=== PATIENT | male | born 1940 | race Hispanic/Latino ===

== ENCOUNTER 2018-09-25 01:53 | Inpatient (IN) | payer MEDICARE, OTHER ==
[2018-09-25] MEDS ORDERED: Nitroglycerin 2% Ointment Foilpak UD TOP STA (02:26)
--- NOTE | 2018-09-25 02:29 | ED PDOC ---
Arrival/HPI - General Chief Complaint: Dizziness/Lightheaded Time Seen by Provider: 09/25/18 02:16 Historian: Patient - History of Present Illness Narrative History of Present Illness (Text): 09/25/18 02:26 A 78 year old male, whose past medical history includes hypertension, presents to the emergency department with a complaint of occasional, intermittent left side chest discomfort and occasional dizziness. Patient states that he has not seen a doctor in many years. Patient denies fevers, chills, headache, shortness of breath, dyspnea on exertion, cough, abdominal pain, nausea, vomiting, diarrhea, back pain, neck pain, urinary/bowel changes, or any other complaint. Time/Duration: Other (Today) Symptom Onset: Sudden Symptom Course: Unchanged Activities at Onset: Rest, Light Context: Home Past Medical History - Provider Review Nursing Documentation Reviewed: Yes - Infectious Disease Hx of Infectious Diseases: None - Pulmonary Hx Respiratory Disorders: No - Neurological Hx Neurological Disorder: No - Renal Hx Renal Disorder: No - Endocrine/Metabolic Hx Endocrine Disorders: No - Hematological/Oncological Hx Blood Disorders: No - Integumentary Hx Dermatological Disorder: No - Musculoskeletal/Rheumatological Hx Musculoskeletal Disorders: No - Gastrointestinal Hx Gastrointestinal Disorders: No - Genitourinary/Gynecological Hx Genitourinary Disorders: No - Psychiatric Hx Substance Use: No - Surgical History Hx Coronary Artery Bypass Graft: Yes (x2) - Anesthesia Hx Anesthesia: No Family/Social History - Physician Review Nursing Documentation Reviewed: Yes Family/Social History: No Known Family HX Smoking Status: Heavy Smoker > 10 Cigarettes Daily Hx Alcohol Use: Yes Frequency of alcohol use: Few days per week Hx Substance Use: No Allergies/Home Meds Allergies/Adverse Reactions: Allergies No Known Allergies Allergy (Verified 09/25/18 02:10) Home Medications: Home Meds Medication Instructions Recorded Confirmed No Known Home Med 09/25/18 09/25/18 Review of Systems - Physician Review All systems were reviewed & negative as marked: Yes - Review of Systems Constitutional: absent: Fevers Respiratory: absent: SOB, Cough Cardiovascular: Chest Pain. absent: LEROY Gastrointestinal: absent: Abdominal Pain, Stool Changes, Diarrhea, Nausea, Vomiting Genitourinary Male: absent: Urinary Output Changes Musculoskeletal: absent: Back Pain, Neck Pain Neurological: Dizziness. absent: Headache Physical Exam Appearance: Positive for: Well-Appearing, Non-Toxic, Comfortable Pain Distress: None Mental Status: Positive for: Alert and Oriented X 3 - Systems Exam Head: Present: Atraumatic, Normocephalic Pupils: Present: PERRL Extroacular Muscles: Present: EOMI Conjunctiva: Present: Normal Mouth: Present: Moist Mucous Membranes Neck: Present: Normal Range of Motion Respiratory/Chest: Present: Clear to Auscultation, Good Air Exchange. No: Respiratory Distress, Accessory Muscle Use Cardiovascular: Present: Regular Rate and Rhythm, Normal S1, S2. No: Murmurs Abdomen: No: Tenderness, Distention, Peritoneal Signs Back: Present: Normal Inspection Upper Extremity: Present: Normal Inspection. No: Cyanosis, Edema Lower Extremity: Present: Normal Inspection. No: Edema Neurological: Present: GCS=15, CN II-XII Intact, Speech Normal Skin: Present: Warm, Dry, Normal Color. No: Rashes Psychiatric: Present: Alert, Oriented x 3, Normal Insight, Normal Concentration Medical Decision Making ED Course and Treatment: 09/25/18 02:28 Impression: A 78 year old male presents to the emergency department with a complaint of left sided chest pain and dizziness. Plan: -- EKG -- Chest X-ray -- Labs -- Aspirin, Lopressor, and Nitro- Bid 2% Oint -- Reassess and disposition Prior Visits: Notes and results from previous visits were reviewed. Progress Notes: 09/25/18 02:29: EKG read and interpreted by me shows NSR at 83 BM. LAD. Incomplete RBBB. Non specific ST- T changes. 09/25/18 04:36: Case discussed in detail with Dr. Kaur. 09/25/18 04:39: Chest X-ray read and interpreted by me shows no acute process. CT scan of the head. CLINICAL HISTORY: Confused. TECHNIQUE: Multiple axial CT images were obtained through the brain without IV contrast material. COMMENTS: Moderate chronic mucosal inflammatory changes of the right maxillary sinus. Air-fluid level in the right maxillary sinus suggestive of superimposed acute sinusitis. Moderate chronic mucosal inflammatory changes of the frontal sinuses. Mild chronic mucosal inflammatory changes of the ethmoid air cells. There is normal configuration of sella turcica. There are no intra or extra- axial collections. There is no mass effect or midline shift. There is no evidence of hematoma formation. No hydrocephalus is present. The ventricles are symmetrical. No abnormal calcifications are present. There is diffuse age-appropriate cerebellar and cerebral atrophy with proportionally dilated ventricles and cortical sulci. There are bilateral periventricular and subcortical white matter hypolucencies compatible with mild chronic microvascular disease. Otherwise, no significant focal abnormalities are seen either in the posterior fossa or supratentorial compartment. IMPRESSION: 1. Age-appropriate cerebellar and cerebral atrophy. 2. Mild chronic microvascular disease. 3. No evidence of acute intracranial pathology. 4. Sinusitis. Acute on top of chronic. Electronically signed on September 25, 2018 5:40:17 AM EDT by: Faizan Angeles M.D., Certified by ABR, MSK, Neuroradiology - Lab Interpretations I have reviewed the lab results: Yes - RAD Interpretation Radiology Orders: 09/25/18 02:20 CHEST PORTABLE [RAD] Stat - EKG Interpretation Interpreted by ED Physician: Yes Type: 12 lead EKG - Scribe Statement The provider has reviewed the documentation as recorded by the Scribe Sharon Watkins Provider Scribe Attestation: All medical record entries made by the Scribe were at my direction and personally dictated by me. I have reviewed the chart and agree that the record accurately reflects my personal performance of the history, physical exam, medical decision making, and the department course for this patient. I have also personally directed, reviewed, and agree with the discharge instructions and disposition. Disposition/Present on Arrival - Present on Arrival Any Indicators Present on Arrival: No History of DVT/PE: No History of Uncontrolled Diabetes: No Urinary Catheter: No History of Decub. Ulcer: No History Surgical Site Infection Following: None - Disposition Have Diagnosis and Disposition been Completed?: Yes Diagnosis: Hypertensive urgency, Chest pain Disposition: HOSPITALIZED Disposition Time: 04:51 Patient Problems: Current Active Problems Problem Status Onset Chest pain Acute Hypertensive urgency Acute Condition: STABLE
[2018-09-25 02:41] LABS: ALB/GLOB RATIO 1.6 (1.1-1.8); ALBUMIN 4.5 g/dL (3.0-4.8); ALT/SGPT 26 U/L (7-56); AST/SGOT 41 U/L (17-59); BLOOD UREA NITROGEN 25 mg/dL (7-21); CALCIUM 9.7 mg/dL (8.4-10.5); GFR NON-AFRICAN AMERICAN 54
[2018-09-25 02:46] LABS: HEMOGLOBIN 14.8 g/dL (14.0-18.0); MEAN CELL VOLUME 94.1 fl (80.0-105.0); MEAN CORPUSCULAR HEMOGLOBIN 31.2 pg (25.0-35.0); MEAN CORPUSCULAR HGB CONC 33.2 g/dl (31.0-37.0); MEAN PLATELET VOLUME 10.8 fl (7.0-11.0); RBC 4.74 10^6/uL (3.5-6.1); RED CELL DISTRIBUTION WIDTH 14.3 % (11.5-14.5); WHITE BLOOD COUNT 7.8 10^3/uL (4.5-11.0)
[2018-09-25 02:51] LABS: INR 1.03; PARTIAL THROMBOPLASTIN TIME 33.6 Seconds (26.9-38.3); PROTHROMBIN TIME 11.4 SECONDS (9.4-12.5)
[2018-09-25 02:53] LABS: TROPONIN I < 0.01 ng/mL
[2018-09-25 03:24] LABS: CK MB% 1.7 % (2.5-3.0); CK-MB 7.5 ng/mL (0.0-3.6)
[2018-09-25 10:56] LABS: TROPONIN I < 0.01 ng/mL
[2018-09-25 11:04] LABS: CK MB% 2.1 % (2.5-3.0); CK-MB 5.8 ng/mL (0.0-3.6)
[2018-09-25] MEDS ORDERED: Pneumococcal 23-Valent Vaccine IM ONE (11:11)
--- NOTE | 2018-09-25 12:57 | RAD ---
Date of service: 09/25/2018 HISTORY: chest pain COMPARISON: No prior. TECHNIQUE: 1 view obtained. FINDINGS: LUNGS: No active pulmonary disease. PLEURA: No significant pleural effusion identified, no pneumothorax apparent. CARDIOVASCULAR: Prior sternotomy with sternal wires and surgical clips in place. Aortic atherosclerotic calcifications. Cardiomediastinal silhouette enlarged. OSSEOUS STRUCTURES: Spinal degenerative changes. VISUALIZED UPPER ABDOMEN: Normal. OTHER FINDINGS: None. IMPRESSION: No active disease.
--- NOTE | 2018-09-25 13:00 | CT ---
Date of service: 09/25/2018 PROCEDURE: CT HEAD WITHOUT CONTRAST. HISTORY: Confused COMPARISON: None available. TECHNIQUE: Axial computed tomography images were obtained through the head/brain without intravenous contrast. Radiation dose: Total exam DLP = 917.9 mGy-cm. This CT exam was performed using one or more of the following dose reduction techniques: Automated exposure control, adjustment of the mA and/or kV according to patient size, and/or use of iterative reconstruction technique. FINDINGS: HEMORRHAGE: No intracranial hemorrhage. BRAIN: No mass effect or edema. Mild atrophy. Chronic microvascular ischemic changes. Bilateral basal ganglia lacunar infarctions. VENTRICLES: Unremarkable. No hydrocephalus. CALVARIUM: Unremarkable. PARANASAL SINUSES: Moderate right maxillary sinus mucosal thickening. MASTOID AIR CELLS: Unremarkable as visualized. No inflammatory changes. OTHER FINDINGS: None. IMPRESSION: No acute intracranial pathology. Age-related changes. Right maxillary sinus disease
--- NOTE | 2018-09-26 11:45 | CP.PCM.PN ---
Subjective - Date & Time of Evaluation Date of Evaluation: 09/26/18 Time of Evaluation: 11:45 - Subjective Subjective: Paged by nurse, patient had 30 second pause on the secured entrance monitor. Upon evaluating patient, patient is asymptomatic, awake and alert, denies cp, sob, or dizziness. Patient states he didn't have bowel movement for 1 week. SBP in the 110s, and patient is saturating well on room air, current HR in the 80s. There's 30 second pause and another ~20 second pause on the strip. Left message to Dr. Kaur's phone, awaiting response. Plan: will obtain EKG, add tsh, bmp, mag, will hold clonidine Told nurse to give prune juice, will also give miralax Will reevaluate Nettie Dunn, DO PGY3 Objective - Vital Signs/Intake and Output Vital Signs (last 24 hours): Temp Pulse Resp BP Pulse Ox 98.4 F 76 18 111/77 113 H 09/26/18 11:31 09/26/18 11:31 09/26/18 11:31 09/26/18 11:31 09/26/18 06:00 Intake and Output: 09/26/18 09/26/18 06:59 18:59 Intake Total 480 Balance 480 - Medications Medications: Current Medications Clonidine HCl (Catapres) 0.1 mg PO Q4H PRN PRN Reason: Systolic Blood Pressure Last Admin: 09/25/18 09:20 Dose: 0.1 mg Hydralazine HCl (Apresoline) 10 mg IVP STAT JOSE Last Admin: 09/25/18 04:09 Dose: 10 mg Lorazepam (Ativan) 1 mg PO QID PRN; Protocol PRN Reason: Anxiety Nicotine (Nicoderm Cq) 1 patch TD DAILY JSOE Last Admin: 09/26/18 09:14 Dose: 1 patch - Labs Labs: 09/25/18 02:20 09/25/18 02:20 PT 11.4 SECONDS (9.4-12.5) 09/25/18 02:20 INR 1.03 09/25/18 02:20 APTT 33.6 Seconds (26.9-38.3) 09/25/18 02:20
[2018-09-26] MEDS ORDERED: POLYETHYLENE GLYCOL 3350 17 GM/Dose PACKET PO ONE (12:00)
[2018-09-26 12:46] LABS: TROPONIN I < 0.01 ng/mL
[2018-09-26 12:48] LABS: BLOOD UREA NITROGEN 19 mg/dL (7-21); CALCIUM 9.5 mg/dL (8.4-10.5); GFR NON-AFRICAN AMERICAN > 60
[2018-09-26] MEDS ORDERED: Nitroglycerin 2% Ointment Foilpak UD TOP PRN (13:17)
--- NOTE | 2018-09-27 11:28 | CARD ---
APPROVED REPORT Date of service: 09/26/2018 EKG Measurement Heart [id number] <Conclusion> Sinus rhythm with sinus arrhythmia with 1st degree AV block Otherwise normal ECG
--- NOTE | 2018-09-27 13:07 | CON ---
DATE: 09/27/2018 REQUESTING PHYSICIAN: Dr. Kaur. REASON FOR CONSULTATION: Chest pain. HISTORY: This is a 78-year-old man with known coronary disease, status post prior bypass surgery, who has had no followup with any physician for over 10 years. He presents to emergency room complaining of left-sided chest discomfort and occasional lightheadedness. He describes his discomfort as an uneasy sensation in his chest. His symptoms tend to wax and wane. He cannot identify any precipitating or relieving factors. Initial electrocardiogram and blood work were unremarkable. He also states he has dizziness, which he attributes to elevation of his blood pressure, although he does not take medication or check his blood pressure regularly. He does have coronary artery disease and reportedly has had myocardial infarctions in the past. He is states he underwent coronary bypass surgery at [facility] 15 or 20 years ago. He has continued to smoke since that time. He has not had followup in over a decade. His cholesterol status is unknown. He has no known history of diabetes. There is no family history of premature heart disease. PAST MEDICAL HISTORY: Notable for the problems mentioned above. He has had a right inguinal herniorrhaphy. MEDICATIONS AT HOME: None. ALLERGIES: NONE. SOCIAL HISTORY: He is a smoker of approximately a pack per day. He previously smoked up to 4 packs a day. He does drink alcohol occasionally. He is a retired truck mechanic. He has been and 3 times. He states he has 8 children, but has no contact with any family members. FAMILY HISTORY: Both parents are from age-related illness. There is no known history of premature heart disease. REVIEW OF SYSTEMS: A 12-point review of systems is notable mainly for problems mentioned above. He does have an inguinal rash as well as questionable bulge in his left lower quadrant at times. He also has leg pain upon walking. PHYSICAL EXAMINATION: GENERAL: He is an elderly man who appears comfortable at rest. VITAL SIGNS: His blood pressure is 146/80 with a pulse of 76 and sinus, respirations are 16. He is afebrile. HEENT: Normocephalic, atraumatic. NECK: Soft bruit is noted on the right. No JVD is noted. CHEST: Bilateral scattered rhonchi heard. HEART: PMI displaced laterally. A soft systolic murmur is present at left sternal border. ABDOMEN: Soft, nontender with normoactive bowel sounds. EXTREMITIES: No clubbing, cyanosis, or edema. SKIN: Warm and dry. PSYCHIATRIC: Normal mood and affect. NEUROLOGIC: Alert and oriented x3. No gross motor or sensory deficits notable. DIAGNOSTIC DATA White count 7.8, hemoglobin and hematocrit 14.8 and 44.6 with platelet count of 228,000. PT/PTT 11.4 and 33.6. Potassium 4.5. BUN and creatinine 19 and 1.1. Troponin is negative. However, CK was 450 with negative MB fraction. Two of the troponins are negative. TSH 1.96. Chest x-ray reveals post sternotomy changes with enlarged cardiac silhouette and clear lung blanc. Electrocardiogram reveals a sinus rhythm with a leftward axis, nonspecific ST-T abnormalities. Repeat electrocardiogram reveals similar findings and evidence of first-degree AV block. Telemetry monitoring revealed a 3-second pause with evidence of marked sinus arrhythmia and brief AV dissociation. IMPRESSION: 1. Chest pain with known coronary disease, suspicious for recurrent angina. 2. Coronary disease, status post remote bypass surgery. 3. Transient pauses suspicious for intrinsic conduction system disease. The patient is not on any negative chronotropic agents at this time. 4. Persistent tobacco abuse. RECOMMENDATIONS: Telemetry monitoring should continue. Negative chronotropic agents should be avoided. Smoking abstinence was strongly encouraged. An echocardiogram will be reviewed. A stress test should be planned. Further recommendations will be made based upon the above findings. Thank you for this consultation. I will be happy to follow along through his hospital course as needed. Brad Azul MD
--- NOTE | 2018-09-28 08:21 | PN ---
DATE: 09/26/2018 SUBJECTIVE: This 78-year-old male was examined on the cardiac daley of the [facility] on the afternoon of Thursday, . This case was reviewed in detail with himself and nurse Julia Velasquez, registered nurse. The patient is more alert and less anxious today. He remains in sinus rhythm on the rn cardiac rehab. He denies any fever, chills, chest pain or palpitation and on physical exam was noted to have a sinus rhythm on monitor with temperature 98.4, respirations 18, pulse 76 and blood pressure 111/77. Physical exam unchanged. LABORATORY DATA: Sodium 138, K 4.5, chloride 103, bicarb 29, BUN 19, creatinine 1.1, random blood sugar 71, magnesium 2.1, calcium 9.5, troponin less than 0.01 x3. TSH normal at 1.96. PT/INR 1.03, PTT 33.6, normal. EKG was reviewed. It showed normal sinus rhythm with first-degree AV block, otherwise normal. IMPRESSION: A 78-year-old male admitted with metabolic encephalopathy, hypertensive urgency, history of atherosclerotic heart disease, status post coronary artery bypass surgery, status post myocardial infarction in the distant past with a strong smoking history and noncompliance with medical followup in his past. PLAN: At present is to maintain this patient on the cardiac unit. He awaits MRA and 2-D echocardiography. At present, blood pressure is stabilized and he is on no antihypertensives but has an order for nitroglycerin 1 inch to chest wall every 4 hours p.r.n. accelerated hypertension if his systolic blood pressure should be greater than 160 or his diastolic blood pressure should be greater than 100. He is also ordered to have Ativan 1 mg p.o. four times a day p.r.n. anxiety. He will be scheduled for physical therapy. He continues on a heart healthy diet and I was notified that the patient had a 3-second pause which resolved spontaneously. As a results, I will place a consultation with Dr. Brad Azul from Cardiology and his clonidine has been discontinued as well. Greater than 35 minutes was spent in the care management, review of labs, orders, x-rays and discussion of this patient with himself and nurse Akhil. All questions were answered. Marybeth Kaur MD [facility] # [id number]
--- NOTE | 2018-09-28 08:28 | PN ---
DATE: 09/27/2018 SUBJECTIVE: This 78-year-old male was examined on the cardiac daley of the [facility] on the afternoon of 09/27/2018. This case was reviewed with Dr. Brad Azul from Cardiology who has evaluated the patient and concurs with the need for echocardiography and stress testing to further evaluate the patient's cardiac stability given his presentation with accelerated hypertension, metabolic encephalopathy, elevation of creatinine and history of myocardial infarction and coronary artery bypass in the past. The patient has also been started now on Norvasc 5 mg p.o. daily as well as Lipitor 20 mg at dinner time while continuing Ecotrin 81 mg daily and ordering nitroglycerin 1 inch to chest wall every 4 hours p.r.n. accelerated hypertension if his systolic blood pressure should be greater than 160 or diastolic blood pressure greater than 100. Physical exam today shows the patient in a normal sinus rhythm with temperature 98.4, respirations 20, pulse 79 and blood pressure 134/77. gambling monitor continues to show normal sinus rhythm. There have been no further pauses. Physical exam is unchanged. IMPRESSION: A 78-year-old male with atherosclerotic heart disease, status post myocardial infarction, double bypass greater than 15 to 20 years ago with noncompliance with diet, medication and medical followup with history of persistent cigarette smoking, alcohol use. PLAN: Continue Norvasc, p.r.n. nitroglycerin, Nicoderm smoking patch, Lipitor, Ecotrin, p.r.n. Ativan. We are awaiting the results of echocardiography, stress thallium Lexiscan testing as well as MRA of renal arteries and based on clinical progress, additional diagnostic workup and testing will be entertained. Greater than 35 minutes was spent in the management of this patient today, adjustment of orders and discussion with coin teller. All questions were answered. Marybeth Kaur MD
[2018-09-28] MEDS ORDERED: Aminophylline 25 mg/ml Inj ONE (09:16)
--- NOTE | 2018-09-28 11:45 | CP.PCM.PCO ---
Physician Communication Note - Physician Communication Note Physician Communication Note: MRA, Echo and stress test results pending
--- NOTE | 2018-09-28 15:04 | PN ---
DATE: 09/28/2018 SUBJECTIVE: The patient is seen lying in bed, on telemetry. He is comfortable at the present time. He has had no further bradycardic episodes seen. He denies any chest pain. MEDICATIONS: His current medications include Ativan p.r.n., clonidine p.r.n., Ecotrin, Lipitor, Nicoderm patch, Norvasc 5 mg daily, and topical nitrates. OBJECTIVE: GENERAL: He is an elderly man, who appears comfortable at rest. VITAL SIGNS: Blood pressure is 176/86 with pulse of 100 and sinus, respirations are 14. He is afebrile. HEENT: No JVD. CHEST: Few scattered rhonchi heard. HEART: PMI displaced laterally with a systolic murmur in the left sternal border. ABDOMEN: Soft, nontender, and normoactive bowel sounds. EXTREMITIES: No edema. DIAGNOSTIC DATA: Morning blood work is pending. IMPRESSION: 1. Recent chest pain, suspicious for progressive coronary artery disease. 2. Coronary artery disease, status post prior bypass surgery with no significant followup for many years. 3. History of weakness and lightheadedness. Noted to have transient pauses of up to 3 seconds on admission, suspicious for intrinsic conduction system disease. 4. Tobacco abuse. RECOMMENDATIONS: His current medications will continue for now. Smoking abstinence is advised. Echocardiogram has been ordered. A stress test will be scheduled for this morning. Avoidance of negative chronotropic agents given his evidence of transient pauses is advisable. The need for regular medical followup was discussed with him. Further recommendations will be after review of his stress test and echocardiogram. Brad Azul MD
--- NOTE | 2018-09-28 15:43 | HP ---
DATE OF EXAM: 09/25/2018 HISTORY OF PRESENT ILLNESS: This 78-year-old male was examined on the cardiac daley of the [facility] on the afternoon of 09/25/2018. This case was reviewed in detail with nurse, Lisbeth Stephens, registered nurse. Case was also reviewed with Dr. Artie Magaña, emergency room physician. Mr. Mckeon is a 78-year-old gentleman who presented to the [facility] last evening complaining of dizziness and lightheadedness. He does have a history of chronic hypertension and also was complaining of intermittent left-sided chest discomfort and had told me that he has not seen a doctor in approximately 10 years, but is status post myocardial infarction and cardiac stents, and also has a history of cigarette smoking. The patient was also very anxious at the time of my exam and that he has had visual hallucinations prior to his presentation to the ER. It should be noted that when he was evaluated in the emergency room, he was having hypertensive urgency and was admitted with a blood pressure of 217/114 in a normal sinus rhythm. The patient was medicated in the emergency room and is now being monitored on the cardiac unit. The patient also is status post coronary artery bypass surgery at [facility] approximately 20 years ago and still smokes. Denied recreational drug misuse and states he also has occasional alcohol use, but denied any knowledge of alcoholism. He is a retired routeman, status post coronary artery bypass x2. ALLERGIES: THE PATIENT DENIED ANY ALLERGIES TO MEDICATION. MEDICATIONS: States he was on no home medication. SOCIAL HISTORY: He is and estranged from his biological children. REVIEW OF SYSTEMS: CONSTITUTIONAL: Review denied fever or chills. HEAD: Had dizziness upon admission, now resolved. Eyes: Had a visual hallucinatory vision at the time of admission, now resolved. Ears: No hearing loss. Throat: No swallowing difficulty. NECK: No stiffness. CARDIAC: Review as per HPI. PULMONARY: No cough. No hemoptysis. GI: No hematemesis. No melena. : No dysuria. SKIN: No rash. VASCULAR: No claudication. PSYCHOLOGICAL: Anxiety at present, no knowledge of depression. NEUROLOGICAL: No knowledge of stroke. SKIN: Without rash. PHYSICAL EXAMINATION VITAL SIGNS: At the time of my interview showed temperature 98.4, respirations 18, pulse 80 and blood pressure 100/60, previously 200/70, pulse ox 97% room air. HEENT: Head: Normocephalic, atraumatic. Eyes: No icterus. Ears: Clear. Throat: Noninjected. NECK: Supple. HEART: S1, S2. LUNGS: Clear. ABDOMEN: Soft. EXTREMITIES: No edema. SKIN: Without rash. NEUROLOGICAL: Intact. PSYCHOLOGICAL: Alert, but anxious. VASCULAR: Legs warm to touch. LABORATORY DATA: White count 7800, hemoglobin 14.8, hematocrit 44.6, platelets 220,000. PT/INR 1.03, PTT 33.6. Sodium 142, K 4.1, chloride 106, bicarb 28, BUN 25, creatinine 1.3, random blood sugar 122, calcium 9.7. Bilirubin 0.5, AST 41, ALT 26, alk phos 64. Troponin less than 0.01. Chest x-ray was reviewed. It showed no active pulmonary disease, no pleural effusions, no pneumothorax. No obvious infiltrates. Head CT was reviewed. It showed no intracranial pathology. No evidence of stroke or intracranial hemorrhage. EKG reportedly showed a sinus rhythm with intermittent first-degree AV block. No evidence of ischemia. 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 My plans are to maintain change this patient on the cardiac unit as discussed with nurse Stephens registered nurse. The patient will be prescribed Ativan 1 mg p.o. q.i.d. p.r.n. anxiety, Nicoderm 21 mg per 24 hour patch daily. The patient was advised regarding smoking cessation. He will continue to have his blood pressure monitors was clonidine being prescribed 0.1 mg p.o. every 4 hours p.r.n. accelerated hypertension. I have ordered an MRA of his abdomen without contrast to rule out renal artery stenosis given his hypertensive urgency and elevated creatinine of 1.3. He is ordered to remain at bedrest and is cleared for heart healthy diet and will be screened for physical therapy for reconditioning and gait training based on his clinical progress, additional diagnostic workup and testing will be entertained. Greater than 75 minutes was spent in the care management, review of labs, orders, x-rays and outlining of his order and discussion of this case with himself and nurse aKt. All questions were answered. Marybeth Kaur MD
--- NOTE | 2018-09-28 20:45 | CARD ---
APPROVED REPORT Date of service: 09/28/2018 Protocol: LEXISCAN Test Type: Lexiscan Sestamibi Stress Test Attending Physician: Dr. Brad Azul Referring Physician: Dr. Marybeth Kaur Test Indications: Chest Pain, CAD Height:5 ft 8 in Weight:153lbs Medications: norvasc, aspirin, lipitor, catapress apresoline, ativan nicoderm, nitro ointment Medical History: 78 year old male wt h/o PR, CABG, angina and anxiety Target HR: 143 bpm Resting ECG: abnormal Resting Heart Rate: 68 bpm Resting Blood Pressure: 132/84mmHg Submaximum (85%): 122 bpm PROCEDURE Pharmacologic stress testing was performed using 0.4mg per 5ml of regadenoson given intravenously over 7-10 seconds. POST EXERCISE Reason for Termination: Protocol completed Target HR: No Max HR: 71 bpm 62% of Maximum Predicted HR: 143 bpm Exercise duration: 00:31 min:sec, 0 Stage Exercise capacity: 1.0METs Max Blood Pressure: 132/84mmHg Blood Pressure response to exercise: normal resting BP - appropriate response Heart Rate response to exercise: appropriate Chest Pain: No, none Angina index: 0 Arrhythmia: No, none ST Change: No, none Deviation: 0 mm INTERPRETATION Stress EKG Conclusion: Normal infusion phase of Lexiscan NST. Signed by Brad Azul Electronically Approved: 09/28/2018 11:45:58 EXAM: Myocardial Perfusion REST/STRESS Stress Test Type: Pharmacologic Imaging Protocol The imaging protocol used to acquire images was Rest Tc-99m/stress Tc-99m 1 day Rest Spect myocardial perfusion imaging was performed in supine position 45 minutes following the injection of 10.9 mCi of Tc-99 Myoview. At peak stress, the patient was injected intravenously with 30.8mCi of Tc-99 tetrofosmin after an infusion time of 0 minutes and 10 seconds. Gated Stress Spect was performed 65 minutes after intravenous Tc-99 Myoview injection. The images were gated to evaluate regional wall motion and calculate ventricular ejection fraction.Images were reconstructed using backfilter projection method in short horizontal and verticle long axis. Spect slices were generated. LV Perfusion The quality of the study is good. The left ventricle is within normal limits in size. The right ventricle is unremarkable. The lung uptake is normal. The distribution of tracer reveals mildly to moderately decreased perfusion involving mid to basal inferior wall on the stress study. The remainder of the LV myocardium is unremarkable. The rest myocardial perfusion study shows no significant change. Wall Motion Wall motion study shows good contractility of the left ventricle. LVEF = 59%. Conclusion 1. Essentially normal SPECT myocardial perfusion study. 2. Fixed, inferior defect is most likely due to diaphrgmatic attenuation. 3. Normal gated wall motion and thicknening of the left ventricle.
--- NOTE | 2018-09-29 07:54 | CP.PCM.PCO ---
Physician Communication Note - Physician Communication Note Physician Communication Note: Echo > relatively normal. NST > no ischemia. Continue medical therapy.
[2018-09-29 08:59] VITALS: RESP 19; TEMP 97.8; O2SAT 96
[2018-09-29 09:36] VITALS: BP 147/84
--- NOTE | 2018-09-29 13:06 | MRI ---
Date of service: 09/28/2018 PROCEDURE: MRA Abdomen without contrast HISTORY: COMPARISON: None available. TECHNIQUE: Multisequence, multiplanar MR images of the abdomen with and without gadolinium contrast enhancement. FINDINGS: LIVER: Unremarkable. GALLBLADDER: Unremarkable. SPLEEN: Unremarkable. PANCREAS: Unremarkable. ADRENALS: Unremarkable. KIDNEYS: 6 millimeter left renal cyst. AORTA: No aneurysm. ASCITES: None. PERITONEUM: Unremarkable. LYMPH NODES: Unremarkable. OTHER FINDINGS: Bilateral single renal artery systems with no evidence of significant renal arterial stenosis. IMPRESSION: Bilateral single renal artery systems with no evidence of significant renal arterial stenosis.
--- NOTE | 2018-09-29 13:25 | CARD ---
APPROVED REPORT Date of service: 09/25/2018 EKG Measurement Heart [id number] <Conclusion> Normal sinus rhythm Possible Left atrial enlargement Left axis deviation Incomplete right bundle branch block Abnormal ECG
[2018-09-29 15:32] VITALS: PULSE 90
--- NOTE | 2018-09-30 08:25 | PN ---
DATE: 09/28/2018 SUBJECTIVE: This 78-year-old male was examined at his bedside on the cardiac daley of the [facility] on the afternoon of Thursday, and case was reviewed in detail with nurse Latha Gutierrez, registered nurse. The patient remains hospitalized awaiting diagnostic studies including MRI, MRA of the renal arteries, 2-D echocardiography and Lexiscan stress testing. He denies any fever, chills, chest pain or shortness of breath and on physical exam at the time of my interview remains in a normal sinus rhythm, temperature 97, respirations 20, pulse 80, blood pressure 151/84. His physical exam remains unchanged. Current labs show sodium 138, K 4.5, chloride 103, bicarb 29, BUN 19, creatinine 1.1, random blood sugar 71, calcium 9.5, magnesium 2.1. Troponin was less than 0.01 x3. TSH was normal at 1.96. PT/INR 1.03, PTT 33.6. White count 7800, hemoglobin 14.8, hematocrit 44.6 and platelets 220,000. IMPRESSION: A 78-year-old male admitted with hypertensive urgency, altered mental status secondary to metabolic encephalopathy in the setting of accelerated hypertension with history of atherosclerotic heart disease, status post coronary artery bypass in the distant past with persistent cigarette and alcohol misuse and abuse. PLAN: Continue Norvasc, Lipitor and Ecotrin. We will await the results of MRA, MRI of the renal arteries, Lexiscan stress testing and echocardiography and based on clinical results, additional diagnostic workup and testing will be entertained with the ultimate plan for this patient to be discharged to home when medically stable with outpatient followup with myself and Dr. Brad Azul. Greater than 35 minutes was spent in the care management and outlining of orders and discussion of this patient with himself and nursing. All questions were answered. Marybeth Kaur MD
--- NOTE | 2018-09-30 12:49 | DS ---
HISTORY OF PRESENT ILLNESS: This 78-year-old male was discharged from the [facility] (Former[facility] on the afternoon of 09/29/2018. Final diagnoses included accelerated hypertension, hypertensive emergency improved, history of atherosclerotic heart disease status post coronary artery bypass with disposition to home and the patient scheduled to follow up in my office on Thursday10/27/2018 and he was advised to call Dr. Brad Azul from Cardiology for followup as well. His discharge diet is a 2 g sodium heart healthy. His discharge meds are Norvasc 5 mg p.o. daily, Lipitor 20 mg p.o. daily, and Ecotrin 81 mg p.o. daily. SUMMARY: This is a 78-year-old male who was admitted with hypertensive urgency and metabolic encephalopathy secondary to accelerated hypertension, was ruled out for myocardial infarction and underwent diagnostic workup including MRI, MRA of his renal arteries which was unremarkable and showed bilateral single renal artery systems with no evidence of obstructive uropathy. No renal mass and he had an unremarkable Lexiscan stress test as well as an unremarkable 2-D echocardiography. He was seen and evaluated by Dr. Azul from Cardiology who as well as I advised the patient regarding smoking and alcohol abuse and misuse cessation, and the patient was carefully instructed on the need for outpatient medical compliance with diet, medication, and medical followup. At the time of his discharge, his temperature was 97.8, respirations 19, pulse 90, and blood pressure 147/84, previously 101/65 with a pulse ox of 96% room air. Sodium 138, K 4.5, chloride 103, bicarb 29, BUN 19, creatinine 1.1, random blood sugar 71, calcium 9.5 and magnesium 2.1. Troponin less than 0.01 x3. TSH normal at 1.96. PT/INR 1.03, PTT 33.6. White count 7800, hemoglobin 14.8, hematocrit 44.6, platelets 220,000. Chest x-ray showed no active pulmonary disease. EKG showed normal sinus rhythm with nonspecific ST-T wave changes, smoking and alcohol cessation was again reviewed with this patient and hopefully he will be compliant with medical followup as an outpatient as discussed. Greater than 35 minutes was spent in the discharge management of this patient and discussion of his case with himself, nurse practitioner, Haley Bee, and nurse Jessica Li, registered nurse. All questions were answered. Marybeth Kaur MD
--- NOTE | 2018-10-01 07:41 | CARD ---
APPROVED REPORT Date of service: 09/28/2018 EXAM: Two-dimensional and M-mode echocardiogram with Doppler and color Doppler. INDICATION Cardiac Disease: CAD Chest Pain 2D DIMENSIONS Left Atrium (2D)3.3 (1.6-4.0cm)IVSd1.0 (0.7-1.1cm) LVDd4.9 (3.9-5.9cm)PWd1.1 (0.7-1.1cm) LVDs3.6 (2.5-4.0cm)FS (%) 26.7 % LVEF (%)52.0 (>50%) M-Mode DIMENSIONS Aortic Root4.20 (2.2-3.7cm)Aortic Cusp Exc.1.40 (1.5-2.0cm) Aortic Valve AO Peak GR.18mmHg Mitral Valve E/A ratio0.0 TDI E/Lateral E'0.0E/Medial E'0.0 LEFT VENTRICLE The left ventricle is normal size. There is borderline concentric left ventricular hypertrophy. The left ventricular function is normal. The left ventricular ejection fraction is within the normal range. There is normal LV segmental wall motion. RIGHT VENTRICLE The right ventricle is normal size. The right ventricular systolic function is normal. ATRIA The left atrium size is normal. The right atrium size is normal. The interatrial septum is intact with no evidence for an atrial septal defect. AORTIC VALVE The aortic valve is moderately sclerotic. There is mild aortic regurgitation. There is no aortic valvular stenosis. MITRAL VALVE The mitral valve is normal in structure. There is no mitral valve regurgitation noted. TRICUSPID VALVE The tricuspid valve is normal in structure. There is no tricuspid valve regurgitation noted. PULMONIC VALVE The pulmonary valve is normal in structure. GREAT VESSELS The aortic root is normal in size. The IVC is normal in size and collapses >50% with inspiration. PERICARDIAL EFFUSION There is no pleural effusion. There is no pericardial effusion. <Conclusion> Normal chamber size. Borderline concentric LVH. Normal LV systolic function. Mild AI.
== END 2018-09-29 16:34 | disposition home or self-care (01) | DRG 304 ==
LOC: ED 01:53 → ERH 04:45 → 2RSO 08:40
PROVIDERS: ADMIT Internal Medicine; ATTEND Internal Medicine
DX: I16.0 Hypertensive urgency (principal); G93.41 Metabolic encephalopathy; I10 Essential (primary) hypertension; I25.10 Atherosclerotic heart disease of native coronary artery without angina pectoris; R07.89 Other chest pain; F29 Unspecified psychosis not due to a substance or known physiological condition; F17.210 Nicotine dependence, cigarettes, uncomplicated; F10.10 Alcohol abuse, uncomplicated; F41.9 Anxiety disorder, unspecified; I45.9 Conduction disorder, unspecified; I25.2 Old myocardial infarction; Z91.19 Patient's noncompliance with other medical treatment and regimen; Z91.11 Patient's noncompliance with dietary regimen; Z95.1 Presence of aortocoronary bypass graft; Z95.5 Presence of coronary angioplasty implant and graft

== ENCOUNTER 2018-10-01 07:59 | Emergency (ER) | payer MEDICARE, OTHER ==
[2018-10-01 08:26] VITALS: RESP 18; TEMP 98.1; O2SAT 99
--- NOTE | 2018-10-01 09:15 | ED PDOC ---
Arrival/HPI - General Historian: Patient - History of Present Illness Narrative History of Present Illness (Text): 10/01/18 09:12 CC: Anxiety, Homeless HPI: 78 yo male w/ PMH of SD (w/ bypass surgery) and Hypertension comes to ED for anxiety and being homeless. Patient states he was recently discharged from [facility] about 5 days ago for a complaint of chest pain. Patient had 3 negative troponins and an EKG that was not concerning of ACS. Patient states he woke up today and it hit him real hard that he was homeless. He did not know where he could go to shower, powder his nose, etc and that triggered an anxiety attack for which he came to hospital. Patient has history of SD and states this is not the same feeling at all. Patient currently denies chest pain, shortness of breat h, diaphoresis, n/v. Patient without any complaints. Patient wants assistance on where he can go after discharge. Time/Duration: 1-3 hours Symptom Onset: Sudden Symptom Course: Resolved Activities at Onset: Rest Context: Sitting <Devon Bush - Last Filed: 10/01/18 10:52> <Boris Marques - Last Filed: 10/01/18 11:48> - General Chief Complaint: Anxiety Time Seen by Provider: 10/01/18 08:40 Past Medical History - Provider Review Nursing Documentation Reviewed: Yes - Infectious Disease Hx of Infectious Diseases: None - Cardiac Hx Cardiac Disorders: Yes (SD) - Pulmonary Hx Respiratory Disorders: No - Neurological Hx Neurological Disorder: Yes (forgetfullness) - HEENT Hx HEENT Disorder: No - Renal Hx Renal Disorder: No - Endocrine/Metabolic Hx Endocrine Disorders: No - Hematological/Oncological Hx Blood Disorders: No - Integumentary Hx Dermatological Disorder: No - Musculoskeletal/Rheumatological Hx Falls: No - Gastrointestinal Hx Gastrointestinal Disorders: No - Genitourinary/Gynecological Hx Genitourinary Disorders: No - Psychiatric Hx Anxiety: Yes Hx Substance Use: No - Surgical History Hx Coronary Artery Bypass Graft: Yes - Anesthesia Hx Anesthesia: No <Devon Bush - Last Filed: 10/01/18 10:52> Family/Social History - Physician Review Nursing Documentation Reviewed: Yes Family/Social History: No Known Family HX Smoking Status: Heavy Smoker > 10 Cigarettes Daily Hx Alcohol Use: No Hx Substance Use: No <Devon Bush - Last Filed: 10/01/18 10:52> Allergies/Home Meds <Devon Bush - Last Filed: 10/01/18 10:52> <Boris Marques - Last Filed: 10/01/18 11:48> Allergies/Adverse Reactions: Allergies No Known Allergies Allergy (Verified 10/01/18 08:26) Review of Systems - Review of Systems Constitutional: Normal. absent: Fatigue, Weight Change, Fevers Eyes: Normal. absent: Vision Changes, Photophobia, Eye Pain ENT: Normal. absent: Hearing Changes, Tinnitus, TMJ Pain Respiratory: Normal. absent: SOB, Cough, Sputum, Wheezing Cardiovascular: Normal. absent: Chest Pain, Palpitations, Edema, Calf Pain Gastrointestinal: Normal. absent: Abdominal Pain, Stool Changes, Constipation, Diarrhea, Nausea, Vomiting Genitourinary Male: Normal. absent: Dysuria, Frequency, Hematuria Musculoskeletal: Normal. absent: Arthralgias, Back Pain, Neck Pain Skin: Normal. absent: Rash, Pruritis, Skin Lesions, Laceration Neurological: Normal. absent: Headache, Dizziness, Focal Weakness Endocrine: Normal. absent: Diaphoresis, Polyuria, Polydipsia Psychiatric: Anxiety, Depression. absent: Normal, Suicidal Ideation <Devon Bush - Last Filed: 10/01/18 10:52> Physical Exam Vital Signs Reviewed: Yes Vital Signs Temp Pulse Resp BP Pulse Ox 10/01/18 08:22 98.1 F 98 H 18 213/96 H 99 Temperature: Afebrile Blood Pressure: Other (first reading was incorrect) Pulse: Regular Respiratory Rate: Normal Appearance: Positive for: Well-Appearing, Non-Toxic, Comfortable Pain Distress: None Mental Status: Positive for: Alert and Oriented X 3 - Systems Exam Head: Present: Atraumatic, Normocephalic Pupils: Present: PERRL Extroacular Muscles: Present: EOMI Conjunctiva: Present: Normal Mouth: Present: Moist Mucous Membranes Neck: Present: Normal Range of Motion. No: Meningeal Signs, JVD Respiratory/Chest: Present: Clear to Auscultation, Good Air Exchange. No: Respiratory Distress, Accessory Muscle Use Cardiovascular: Present: Regular Rate and Rhythm, Normal S1, S2. No: Murmurs, Tachycardic Abdomen: Present: Normal Bowel Sounds. No: Tenderness, Distention, Peritoneal Signs, Rebound, Guarding Upper Extremity: Present: Normal Inspection. No: Cyanosis, Edema Lower Extremity: Present: Normal Inspection. No: Edema, CALF TENDERNESS Neurological: Present: GCS=15, CN II-XII Intact, Speech Normal Skin: Present: Warm, Dry, Normal Color. No: Rashes Psychiatric: Present: Alert, Oriented x 3, Normal Insight, Normal Concentration <Devon Bush - Last Filed: 10/01/18 10:52> Vital Signs Temp Pulse Resp BP Pulse Ox 10/01/18 11:24 72 18 167/78 H 99 10/01/18 11:12 85 18 179/82 H 99 10/01/18 10:08 81 146/84 10/01/18 09:26 79 18 184/89 H 99 10/01/18 08:22 98.1 F 98 H 18 213/96 H 99 <Randall Marquesont - Last Filed: 10/01/18 11:48> Medical Decision Making ED Course and Treatment: 10/01/18 09:21 Impression 78 yo male w/ PMH of SD (w/ bypass surgery) and Hypertension comes to ED for anxiety and being homeless. Plan -CBC -CMP -Trop -EKG -Labetalol Prior Visits Prior documentation and lab work reviewed prior to this admission Progress Notes will recheck blood pressure to start anti-Hypertension agent Of note patient had recent admission and was discharged with negative trop x3 and EKG 10/01/18 09:27 Social Work team helped patient re-establish connection to old home, patient was not evicted Patient will be discharged with follow up instructions Patient re-evaluated and currently with no symptoms Re-evaluation Time: 10:56 Reassessment Condition: Re-examined, Improved - Lab Interpretations Lab Results: 10/01/18 07:31 10/01/18 07:31 Lab Results 10/01/18 07:31: Sodium 140, Potassium 3.7, Chloride 101, Carbon Dioxide 27, Anion Gap 15, BUN 19, Creatinine 1.1, Est GFR ( Amer) > 60, Est GFR (Non- Af Amer) > 60, Random Glucose 120 H, Calcium 9.4, Total Bilirubin 0.6, AST 62 H D, ALT 34, Alkaline Phosphatase 77, Troponin I < 0.01, Total Protein 7.4, Albumin 4.5, Globulin 2.9, Albumin/Globulin Ratio 1.5 10/01/18 07:31: WBC 8.2, RBC 4.79, Hgb 14.9, Hct 45.0, MCV 93.9, MCH 31.1, MCHC 33.1, RDW 13.8, Plt Count 237, MPV 11.0, Neut % (Auto) 69.8 H, Lymph % (Auto) 19.5 L, Banks % (Auto) 7.4 H, Eos % (Auto) 1.8, Baso % (Auto) 1.5, Lymph # (Auto) 1.6, Banks # (Auto) 0.6, Eos # (Auto) 0.2, Baso # (Auto) 0.12, Absolute Neuts (auto) 5.69 I have reviewed the lab results: Yes Interpretation: All labs normal <Devon Bush - Last Filed: 10/01/18 10:52> - Lab Interpretations Lab Results: Troponin I < 0.01 ng/mL 10/01/18 07:31 Total Bilirubin 0.6 mg/dL (0.2-1.3) 10/01/18 07:31 AST 62 U/L (17-59) H D 10/01/18 07:31 ALT 34 U/L (7-56) 10/01/18 07:31 Alkaline Phosphatase 77 U/L (38-126) 10/01/18 07:31 Total Protein 7.4 g/dL (5.8-8.3) 10/01/18 07:31 Albumin 4.5 g/dL (3.0-4.8) 10/01/18 07:31 Globulin 2.9 gm/dL 10/01/18 07:31 Albumin/Globulin Ratio 1.5 (1.1-1.8) 10/01/18 07:31 - EKG Interpretation EKG Interpretation (Text): 10/01/18 09:38 ekg my read: nsr at 79 bpm, irbbb, no ectopy, lvh, prolonged qt Interpreted by ED Physician: Yes <Boris Marques - Last Filed: 10/01/18 11:48> Disposition/Present on Arrival - Present on Arrival Any Indicators Present on Arrival: No History of DVT/PE: No History of Uncontrolled Diabetes: No Urinary Catheter: No History of Decub. Ulcer: No History Surgical Site Infection Following: None - Disposition Have Diagnosis and Disposition been Completed?: Yes Disposition Time: 10:56 Patient Plan: Discharge <Devon Bush - Last Filed: 10/01/18 10:52> <Boris Marques - Last Filed: 10/01/18 11:48> - Disposition Diagnosis: Anxiety attack, Homeless Disposition: HOME/ ROUTINE Condition: GOOD Additional Instructions: 1. Patient will need to followup with [facility] within a week of discharge from hospital. Referrals: [facility] [Provider Group] - Follow up with primary Forms: [email or web address] ([place])
[2018-10-01] MEDS ORDERED: Labetalol 5 mg/ml Inj 20ML IV STA (09:27)
[2018-10-01 10:14] LABS: BASO # 0.12 K/mm3 (0.0-2.0); BASO % 1.5 % (0.0-3.0); EOS # 0.2 (0.0-0.7); EOS % 1.8 % (1.5-5.0); HEMOGLOBIN 14.9 g/dL (14.0-18.0); LYMPH # 1.6 (1.2-3.4); LYMPH % 19.5 % (22.0-35.0); MEAN CELL VOLUME 93.9 fl (80.0-105.0); MEAN CORPUSCULAR HEMOGLOBIN 31.1 pg (25.0-35.0); MEAN CORPUSCULAR HGB CONC 33.1 g/dl (31.0-37.0); MONO # 0.6 (0.1-0.6); MONO % 7.4 % (1.0-6.0); RBC 4.79 10^6/uL (3.5-6.1); RED CELL DISTRIBUTION WIDTH 13.8 % (11.5-14.5); WHITE BLOOD COUNT 8.2 10^3/uL (4.5-11.0)
[2018-10-01 10:28] LABS: ALB/GLOB RATIO 1.5 (1.1-1.8); ALBUMIN 4.5 g/dL (3.0-4.8); ALT/SGPT 34 U/L (7-56); AST/SGOT 62 U/L (17-59); BLOOD UREA NITROGEN 19 mg/dL (7-21); CALCIUM 9.4 mg/dL (8.4-10.5); GFR NON-AFRICAN AMERICAN > 60
[2018-10-01 10:36] LABS: TROPONIN I < 0.01 ng/mL
[2018-10-01 11:25] VITALS: BP 167/78; PULSE 72
--- NOTE | 2018-10-01 19:17 | CARD ---
APPROVED REPORT Date of service: 10/01/2018 EKG Measurement Heart [id number] <Conclusion> Normal sinus rhythm with sinus arrhythmia Possible Left atrial enlargement Incomplete right bundle branch block Leftward axis Prolonged QT Abnormal ECG
== END 2018-10-01 11:24 | disposition home or self-care (01) ==
LOC: ED 07:59
DX: F41.0 Panic disorder [episodic paroxysmal anxiety] (principal); Z59.0 Homelessness; F17.210 Nicotine dependence, cigarettes, uncomplicated; I10 Essential (primary) hypertension